=== PATIENT | male | born 1965 | race Caucasian/White ===

== ENCOUNTER → 2018-11-02 12:06 | Day surgery (SDC) | payer BC ==
[~2018-11-02 12:06] MED LIST: Acetaminophen TAB* 325 MG PO PRN; Buffered Lidocaine 1% SYRIN* 1 ML/SYRINGE INTRADERM ONE; Dexamethasone IV* 4 MG/ML 1 ML (4 MG) IV SLOW PU ONE; Dexamethasone IV* 4 MG/ML 1 ML (4 MG) ONE; Famotidine IV* 10 MG/ML 2 ML (20 mg) IV ONE; Famotidine IV* 10 MG/ML 2 ML (20 mg) ONE; HYDROcodone/ACETAMIN 5-325 MG* 1 TAB ONE; HYDROcodone/ACETAMIN 5-325 MG* 1 TAB PO PRN; Lactated Ringers 1000 ML Bag* 1,000 ML IV SCH; Lidocaine 1% w EPI 1:100,000* MDV 20 ML VIAL ONE; Lidocaine 2% PF * 5 ML VIAL ONE; Lidocaine 4% TOPICAL* 50 ML TOP.SOLN ONE; Midazolam* 1 MG/ML 5 ML VIAL (5 MG) ONE; Naloxone* 0.4 MG/ML 1 ML VIAL IV PRN; Ondansetron INJ* 2 MG/ML VIAL ONE; Oxymetazoline 0.05% NASAL SPR* 15 ML BTL ONE; PROCHLORPERAZINE INJ 5 MG/ML 2 ML VIAL IV PRN; Propofol* 10 MG/ML 20 ML BTL ONE; Succinylcholine* 20 MG/ML 10 ML VIAL ONE; fentaNYL* 50 MCG/ML 2 ML VIAL (100 MCG VIAL) IV PRN; fentaNYL* 50 MCG/ML 2 ML VIAL (100 MCG VIAL) ONE; oxyCODONE TAB* 5 MG TAB PO PRN
[2018-11-02 17:32] VITALS: BP 141/94
--- NOTE | 2018-11-02 20:42 | OP ---
OPERATIVE REPORT: DATE OF OPERATION: 11/02/18 - [facility] DATE OF : 65 SURGEON: Elton Wolff MD. ANESTHESIOLOGIST: Sujata Nelson MD. ANESTHESIA: General. PRE-OP DIAGNOSIS: Chronic sinusitis and nasal polyposis. POST-OP DIAGNOSIS: Chronic sinusitis and nasal polyposis. OPERATIVE PROCEDURE: Endoscopic sinus surgery with bilateral anterior ethmoidectomies. COMPLICATIONS: None. DISPOSITION: Good. SPECIMENS: Left and right ethmoid contents with polyps. The Propel drug-eluting stent was placed. DESCRIPTION OF PROCEDURE: The patient was taken to the operating room and placed in the supine position on the operating table. General anesthesia induced and he was maintained with a laryngeal mask airway anesthesia. His nose was packed bilaterally with cottonoids impregnated with oxymetazoline and 4 % lidocaine for the surgery. After several minutes, the packs were removed, his middle turbinates, lateral crowe and polyps were injected with 1% lidocaine and 1:100,000 epinephrine. The middle turbinates were medialized. The anterior ethmoid and posterior ethmoids were debrided of polyps and some further trabecula were taken down. The Propel stents were placed and Stammberger Sinu- Foam was placed. The patient tolerated this well, no complications, transferred to the recovery room in stable condition. [id number]/[facility] #: [id number] [facility]
== END | disposition home or self-care (01) ==
LOC: OR 12:06
PROVIDERS: ATTEND Otolaryngology
DX: J32.2 Chronic ethmoidal sinusitis (principal); J33.8 Other polyp of sinus; J45.909 Unspecified asthma, uncomplicated; E78.5 Hyperlipidemia, unspecified; K21.9 Gastro-esophageal reflux disease without esophagitis; R06.83 Snoring
CPT/HCPCS: 88305; 88311; A9270-GY; J0330; J1100; J2250; J2405; J2704; J3010; S1090

== ENCOUNTER 2019-02-27 13:59 | Emergency (ER) | payer SELFPAY ==
--- OUTSIDE RECORDS SUMMARY | 2019-02-27 14:06 | XMS REPORT | Continuity of Care Document ---
:1965 External Reference #:[id number] Author Name OLAYINKA Interiano (transmitted by agent of provider Jeffery Chakraborty) Address [address] [place] [address] Care Team Providers Name Role Phone Elton Wolff MD - Care Team Information Teacher Advisor [phone] MD - Family Medicine Care Team Information Teacher Advisor [phone] Problems Active Problems Provider Date Polyp of nasal cavity Jeffery Chakraborty MD Onset: 10/09/2015 Allergic rhinitis due to pollen Jeffery Chakraborty MD Onset: 10/09/2015 Allergic rhinitis Jeffery Chakraborty MD Onset: 10/09/2015 Uncomplicated severe persistent asthma Jeffery Chakraborty MD Onset: 2015 Polyp of nasal cavity Jeffery Chakraborty MD Onset: 12/14/2018 Uncomplicated severe persistent asthma Jeffery Chakraborty MD Onset: 2018 Social History Type Date Description Comments Sex Unknown Tobacco Use Start: Unknown Patient has never smoked formerly used chewing tobacco but has quit Smoking Status Reviewed: 01/16/19 Patient has never smoked formerly used chewing tobacco but has quit Allergies, Adverse Reactions, Alerts Description No Known Drug Allergies Medications Active Medications SIG Qnty Indications Ordering Provider Date Dulera inhale 2 puffs by 39gm J45.50 Selma Willams NP 12/14/2018 inhalation route 2 200-5mcg/Act times per day in Aerosol the morning and evening. rinse mouth after use. Proair HFA 2 puffs every 4 as 25.5gm J45.50 Jeffery Carmona 12/14/2018 needed MD Palmer 108(90Base) mcg/Act Aerosol Dupixent administer 300 mg 4ml J45.50 Christopher A. 12/14/2018 (2cc) every 2 MD Palmer 300mg/2ML Soln weeks sq Prefill Syringe Dulera Inhale Two Puffs 8.800gm J45.50 Christopher A. 10/09/2015 By Mouth Twice A MD Palmer 200-5mcg/Act Day. Patient needs Aerosol an appointment Omeprazole take one capsule Unknown 20mg qd Capsules DR Albuterol Sulfate 1 vial every 4h as Unknown needed (2.5mg/3ML) 0.083% Nebulizer Proair HFA 2 puffs every 4 as 8.500gm Leroyopher A. needed MD Palmer 108(90Base) mcg/Act Aerosol Clindamycin HCL Take 1 Capsule By Unknown Mouth Four Times 300mg Capsules Daily Biotin Unknown 2500mcg Capsules Medications Administered in Office Medication SIG Qnty Indications Ordering Provider Date Fasenra 30 MG Single Dose Jeffery Chakraborty MD 01/15/2016 Injection Therapeutic, Prophylactic Or Jeffery Chakraborty MD 01/15/2016 Diagnostic Injection Subq/Im Injection Fasenra 30 MG Single Dose Jeffery Chakraborty MD 12/18/2015 Injection Therapeutic, Prophylactic Or Jeffery Chakraborty MD 12/18/2015 Diagnostic Injection Subq/Im Injection Immunizations Description No Information Available Vital Signs Date Vital Result Comment 01/16/2019 4:05pm BP Systolic 110 mmHg BP Diastolic 82 mmHg Height 69 inches 5'9" Weight 244.00 lb BMI (Body Mass Index) 36.0 kg/m2 Heart Rate 94 /min Respiratory Rate 16 /min Body Temperature 96.9 F O2 % BldC Oximetry 100 % 12/14/2018 10:34am BP Systolic 117 mmHg BP Diastolic 73 mmHg Height 69 inches 5'9" Weight 244.00 lb BMI (Body Mass Index) 36.0 kg/m2 Heart Rate 85 /min O2 % BldC Oximetry 95 % Results Description No Information Available Procedures Date Code Description Status 12/14/2018 29759 Nitric Oxide Gas Determination Completed 12/14/2018 56788 Allergy Tests Percutaneous W/ Allergenic Extracts Completed 12/14/2018 92838 Demonstration/Eval,Of Patient Utilization Of Completed Aerosol,Nebulizer 12/14/2018 30814 Bronchodilation Responsiveness Spirometry Pre/Post Completed Bronchodil Adm Medical Devices Description No Information Available Encounters Type Date Location Provider Dx Diagnosis Office Visit 01/16/2019 OLAYINKA Good J45.50 Severe persistent asthma, 4:00p uncomplicated J33.0 Polyp of nasal cavity J30.1 Allergic rhinitis due to pollen J30.89 Other allergic rhinitis Office Visit 12/14/2018 10:30a Maryam Carmona J45.50 Severe persistent MD Palmer asthma, uncomplicated J33.0 Polyp of nasal cavity J30.1 Allergic rhinitis due to pollen J30.89 Other allergic rhinitis Assessments Date Code Description Provider 01/16/2019 J45.50 Severe persistent asthma, uncomplicated OLAYINKA Interiano 01/16/2019 J33.0 Polyp of nasal cavity OLAYINKA Interiano 01/16/2019 J30.1 Allergic rhinitis due to pollen OLAYINKA Interiano 01/16/2019 J30.89 Other allergic rhinitis OLAYINKA Interiano 12/14/2018 J45.50 Severe persistent asthma, uncomplicated Jeffery Chakraborty MD 12/14/2018 J33.0 Polyp of nasal cavity Jeffery Chakraborty MD 12/14/2018 J30.1 Allergic rhinitis due to pollen Jeffery Chakraborty MD 12/14/2018 J30.89 Other allergic rhinitis Jeffery Chakraborty MD Plan of Treatment 01/16/2019 - OLAYINKA IntreianoJ45.50 Severe persistent asthma, uncomplicatedComments:Patient to continue Dulera for prophylaxis of his lungs and Pro Air for breakthrough chest symptoms. Patient to use nebulizer every 4 hours as needed. Patient to use Xhance, as prescribed, for prophylaxis of his nose and polyps. Patient is a good candidate for Dupixent. Patient understands the risks versus benefits of using Dupixent for his asthma. Patient would like to start Dupixent. We are in the process of obtaining prior authorization so that patient can use Dupixent.Patient given sample of Xhance today. Patient to call this office in 1-2 weeks for update on effectiveness of using Xhance.J33.0 Polyp of nasal cfiyyeQ00.1 Allergic rhinitis due to ysjobbZ39.89 Other allergic rhinitis Functional Status Description No Information Available Mental Status Description No Information Available Referrals Description No Information Available
--- NOTE | 2019-02-27 15:40 | UC ---
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 HE HAS SOME SWELLING IN THE LEFT NASOLABIAL FOLD. NO VISUAL DISTURBANCES, NAUSEA, HEADACHE, DIZZINESS. NO MEMORY LOSS FOR EVENTS PRIOR TO THE EVENT BUT STATES THE FIRST FEW MINUTES AFTER BEING STRUCK ARE FUZZY. NO LOC. UP-TO-DATE TETANUS. - History of Current Complaint Chief Complaint: UCGeneralIllness Stated Complaint: FACIAL INJURY Time Seen by Provider: 02/27/19 14:53 Hx Obtained From: Patient, Family/Casino Change Attendant - Onset/Duration: Sudden Onset, Lasting Hours, Still Present Timing: Constant Severity Initially: Moderate Severity Currently: Moderate Pain Intensity: 7 Pain Scale Used: 0-10 Numeric Aggravating Factor(s): Other - TRAUMA Alleviating Factor(s): Ice - Allergies/Home Medications Allergies/Adverse Reactions: Allergies Allergy/AdvReac Type Severity Reaction Status Date / Time No Known Allergies Allergy Verified 02/27/19 14:46 Home Medications: Home Medications Dupilumab [Dupixent] 200 mg PO DAILY 02/27/19 [History Confirmed 02/27/19] PMH/Surg Hx/FS Hx/Imm Hx Respiratory History: Asthma - Surgical History Surgical History: Yes Surgery Procedure, Year, and Place: [facility] & A as a child. 2015 BILATERAL FUNCTIONAL ENDOSCOPIC SINUS SURGERY, SEPTOPLASTY, [facility] - Social History Alcohol Use: Occasionally Alcohol Amount: STATES SEASONAL,[place] MONTHS NONE, SOME TIMES 12/WEEK Substance Use Type: None Smoking Status (MU): Never Smoked Tobacco Have You Smoked in the Last Year: No Review of Systems All Other Systems Reviewed And Are Negative: Yes Constitutional: Positive: Negative Skin: Positive: Other - SPFL ABRASIONS ON LEFT FACE ENT: Positive: Other - PAIN/SWELLING NOSE Respiratory: Positive: Negative Cardiovascular: Positive: Negative Neurological: Positive: Negative Physical Exam Triage Information Reviewed: Yes Appearance: Well-Appearing, No Pain Distress, Well-Nourished Vital Signs: Initial Vital Signs Temp 98.1 F 02/27/19 14:39 Pulse 78 02/27/19 14:39 Resp 16 02/27/19 14:39 Pulse Ox 98 02/27/19 14:39 Vital Signs Reviewed: Yes Eyes: Positive: Conjunctiva Clear, Other: - PERRL, EOMI ENT: Positive: Hearing grossly normal, Pharynx normal, TMs normal, Other - SWELLING LEFT NASOLABIAL FOLD. TENDERNESS LEFT SIDE OF NOSE AND OVER BRIDGE OF NOSE. EQUAL AIR MOVEMENT THROUGH BOTH NARES. NO SEPTAL HEMATOMA IDENTIFIED. Neck: Positive: Supple Respiratory: Positive: No respiratory distress, No accessory muscle use Cardiovascular: Positive: Pulses Normal Abdomen Description: Positive: Soft Musculoskeletal: Positive: Strength Intact Neurological: Positive: Alert, Muscle Tone Normal, Other: - CN II-XII GROSSLY INTACT BILATERALLY. 5/5 STRENGTH Psychological: Positive: Age Appropriate Behavior Skin: Positive: Other - SPFL ABRASIONS LEFT SIDE OF NOSE Diagnostics - Radiology CT MAX/FACE W/O CONTRAST Radiology Interpretation Completed By: Radiologist Summary of Radiographic Findings: 1. MINIMALLY DISPLACED LEFT NASAL BONE FRACTURE. THE NASOLACRIMAL DUCTS ARE INTACT. 2. 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 3. SINONASAL POLYPOSIS INVOLVING ALONG THE ANTERIOR AND POSTERIOR DRAINAGE PATHWAYS BILATERALLY. Epistaxis Nasal Course/Dx - Differential Dx/Diagnosis Provider Diagnosis: Nasal bone fracture Discharge ED - Sign-Out/Discharge Documenting (check all that apply): Patient Departure All imaging exams completed and their final reports reviewed: Yes - Discharge Plan Condition: Stable Disposition: HOME Patient Education Materials: Nasal Fracture (ED) Forms: *Work Release Referrals: Mario Lane MD [Primary Care Provider] - If Needed Deny Donahue MD [Medical Doctor] - 3 Days Timothy Lawler MD [Medical Doctor] - Additional Instructions: MAXILLOFACIAL CT SHOWS: 1. MINIMALLY DISPLACED LEFT NASAL BONE FRACTURE. THE NASOLACRIMAL DUCTS ARE INTACT. 2. 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 3. SINONASAL POLYPOSIS INVOLVING ALONG THE ANTERIOR AND POSTERIOR DRAINAGE PATHWAYS BILATERALLY. CALL ENT OR OCCUPATIONAL MEDICINE TODAY TO SCHEDULE FOLLOW-UP APPOINTMENT IN THE NEXT FEW DAYS. APPLY ICE SEVERAL TIMES DAILY. OTC MEDICATIONS NEEDED FOR DISCOMFORT. - Billing Disposition and Condition Condition: STABLE Disposition: Home
== END 2019-02-27 16:03 | disposition home or self-care (01) ==
LOC: UCEAST 13:59
DX: S02.2XXA Fracture of nasal bones, initial encounter for closed fracture (principal); S00.31XA Abrasion of nose, initial encounter; J45.909 Unspecified asthma, uncomplicated; K08.89 Other specified disorders of teeth and supporting structures; W22.8XXA Striking against or struck by other objects, initial encounter; Y93.89 Activity, other specified; Y92.9 Unspecified place or not applicable
CPT/HCPCS: 70486; 99211; G0463

== ENCOUNTER 2023-09-20 03:46 | Observation (INO) ==
[2023-09-20] MEDS: Piperacillin/Tazobac 3.375 BAG 3.375 GM/100 ML BAG IV ONE (04:24)
[2023-09-20] MEDS: Acetaminophen IV 1 GM/100ML 1,000 MG/100 ML BAG IV ONE (04:45)
[2023-09-20] MEDS: Lactated Ringers SEPSIS* BAG 2,120 ML IV ONE (04:48)
[2023-09-20 04:52] LABS: ABS Lymphocytes 0.6 10^3/uL (1.0-4.8); ABS Monocytes 0.2 10^3/uL (0.0-1.1); ABS Neutrophils 7.9 10^3/uL (1.5-7.6); ABS Nucleated RBC 0.01 10^3/ul; Eosinophil % 0.2 %; Hematocrit 41.3 % (38-53); Hemoglobin 14.4 g/dL (13.2-16.3); Lymphocyte % 6.4 %; Mean Corpuscular Hemoglobin 33.4 pg (27-33); Mean Corpuscular Hgb Conc 34.7 g/dL (31-36); Mean Corpuscular Volume 96.1 fL (80-97); Mean Platelet Volume 7.2 fL (7.5-11.2); Nucleated Red Blood Cells % 0.1 %/100WBC (0.0-0.8); Platelet Count 247 10^3/uL (150-450); Red Cell Distribution Width 13.2 % (12-17); White Blood Count 8.7 10^3/uL (3.6-10.2)
[2023-09-20] MEDS: Vancomycin 1,500 MG in NS 0.9% 250 ml 250 ML IVPB ONE (05:25)
[2023-09-20 05:37] LABS: ALT 61 U/L (7-52); AST 30 U/L (13-39); Albumin 3.9 g/dL (3.2-5.2); Albumin/Globulin Ratio 1.8 (1-3); Alkaline Phosphatase 58 U/L (35-149); Anion Gap 9 mmol/L (2-16); Blood Urea Nitrogen 14 mg/dL (6-24); C Reactive Protein 25.72 mg/L (<8.01); CO2 Carbon Dioxide 25 mmol/L (22-32); Calcium 8.7 mg/dL (8.6-10.3); Chloride 105 mmol/L (101-111); Creatinine, Serum 1.04 mg/dL (0.67-1.17); Globulin 2.2 g/dL (2-4); Glucose 97 mg/dL (70-100); Lipase < 10 U/L (11.0-82.0); Potassium 3.8 mmol/L (3.5-5.0); Sodium 139 mmol/L (135-145); Total Bilirubin 1.7 mg/dL (0.2-1.0); Total Protein 6.1 g/dL (6.4-8.9); eGFR CKD-EPI 83.2 (>60)
[2023-09-20 06:14] LABS: Urine Appearance Clear; Urine Bilirubin Negative (Negative); Urine Blood Negative (Negative); Urine Color Light-Yellow; Urine Glucose Negative (Negative); Urine Ketones Negative (Negative); Urine Nitrite Negative (Negative); Urine Protein Negative (Negative); Urine Specific Gravity 1.015 (1.002-1.030); Urine Urobilinogen Negative (Negative)
[2023-09-20] MEDS: Iohexol 300 (CONTRAST) 10 ML SDV IV ONE (06:29)
[2023-09-20] MEDS: Lactated Ringers 1000 ml BAG 1,000 ML IV ONE (09:09)
[2023-09-20] MEDS ORDERED: NF:Azelastine 0.1% Nasal (NF) 30 ML BTL BOTH NARES PRN (09:52)
[2023-09-20] MEDS: Piperacillin/Tazobac 3.375 BAG 3.375 GM/100 ML BAG IV SCH ×2 (10:37→18:27)
[2023-09-20] MEDS: NS 0.9% 1000 ml BAG 1,000 ML IV SCH (10:37)
[2023-09-20] MEDS: Ondansetron 4 mg VIAL 2 MG/ML 2 ml VIAL IV PRN (10:37)
[2023-09-20] MEDS: Morphine 2 MG/ML SYRINGE IV PRN (10:37)
[2023-09-20] MEDS ORDERED: Zosyn per Pharmacy NOTE FOLLOW UP SCH (11:00)
[2023-09-20] MEDS: Heparin 5000 UNITS/ML 1 mL VIAL SUBCUT SCH (14:56)
[2023-09-20] MEDS: Acetaminophen IV 1 GM/100ML 1,000 MG/100 ML BAG IV PRN (18:21)
[2023-09-20] MEDS: Mometasone/Formoter 200/5 MDI INH SCH (19:59)
[2023-09-21 06:23] LABS: ABS Lymphocytes 0.4 10^3/uL (1.0-4.8); ABS Monocytes 0.4 10^3/uL (0.0-1.1); ABS Neutrophils 4.8 10^3/uL (1.5-7.6); ABS Nucleated RBC 0.01 10^3/ul; Eosinophil % 0.1 %; Hematocrit 39.3 % (38-53); Hemoglobin 13.5 g/dL (13.2-16.3); Lymphocyte % 7.5 %; Mean Corpuscular Hemoglobin 33.2 pg (27-33); Mean Corpuscular Hgb Conc 34.3 g/dL (31-36); Mean Corpuscular Volume 96.9 fL (80-97); Mean Platelet Volume 7.6 fL (7.5-11.2); Nucleated Red Blood Cells % 0.1 %/100WBC (0.0-0.8); Platelet Count 172 10^3/uL (150-450); Red Blood Count 4.05 10^6/uL (4.06-5.63); Red Cell Distribution Width 13.1 % (12-17); White Blood Count 5.6 10^3/uL (3.6-10.2)
[2023-09-21 06:48] LABS: Calcium 8.2 mg/dL (8.6-10.3); Creatinine, Serum 1.06 mg/dL (0.67-1.17); Potassium 3.7 mmol/L (3.5-5.0); eGFR CKD-EPI 81.3 (>60)
[2023-09-22 07:12] LABS: Hematocrit 39.7 % (38-53); Hemoglobin 13.5 g/dL (13.2-16.3); Mean Corpuscular Hemoglobin 32.9 pg (27-33); Mean Corpuscular Hgb Conc 34.1 g/dL (31-36); Mean Corpuscular Volume 96.7 fL (80-97); Mean Platelet Volume 7.4 fL (7.5-11.2); Platelet Count 180 10^3/uL (150-450); Red Blood Count 4.11 10^6/uL (4.06-5.63); Red Cell Distribution Width 13.1 % (12-17); White Blood Count 4.9 10^3/uL (3.6-10.2)
[2023-09-22 08:03] LABS: Calcium 8.2 mg/dL (8.6-10.3); Creatinine, Serum 0.98 mg/dL (0.67-1.17); Potassium 3.8 mmol/L (3.5-5.0); eGFR CKD-EPI 89.4 (>60)
[2023-09-22] MEDS: Lactated Ringers 1000 ml BAG 1,000 ML IV ONE (09:18)
[2023-09-22 14:01] VITALS: BP 118/84
== END 2023-09-22 17:44 | disposition home or self-care (01) ==
LOC: EDHOLD 03:46 → ED 03:46 → MED 10:57
PROVIDERS: ADMIT Internal Medicine; ATTEND Internal Medicine